=== PATIENT | female | born 1930 | race Caucasian/White ===

== ENCOUNTER → 2016-10-17 | Outpatient (REF) | payer MEDICARE, OTHER ==
[2016-10-17 09:57] LABS: BASOPHILS % (AUTO) 1 % (0-2); EOSINOPHILS # (AUTO) 0.1 10^3uL; EOSINOPHILS % (AUTO) 2 % (0-4); LYMPHOCYTES # (AUTO) 1.3 X10^3; MEAN CORPUSCULAR HGB CONC 33.2 g/dL (31.0-37.0); MEAN CORPUSCULAR VOLUME 97 FL (80-100); MEAN PLATELET VOLUME 10.1 FL (6.0-9.5); MONOCYTES # (AUTO) 0.4 X10^3; MONOCYTES % (AUTO) 9 % (3-11); NEUTROPHILS # (AUTO) 2.3 X10^3; NEUTROPHILS % (AUTO) 56 % (51-67); PLATELET COUNT 220 10^3uL (150-450); WHITE BLOOD COUNT 4.13 10^3uL (4.0-11.0)
[2016-10-17 10:10] LABS: MEAN CORPUSCULAR HEMOGLOBIN 32.3 PG (26.0-34.0)
== END ==
LOC: LAB 09:26
PROVIDERS: ATTEND Internal Medicine
DX: I50.42 Chronic combined systolic (congestive) and diastolic (congestive) heart failure (principal); R73.03 Prediabetes; R73.01 Impaired fasting glucose
CPT/HCPCS: 80048; 83036; 85025

== ENCOUNTER 2017-01-16 10:40 | Outpatient (RCR) | payer MEDICARE, OTHER | END 2017-01-22 19:24 | disposition home or self-care (01) | LOC: LAB 10:40 | PROVIDERS: ATTEND Internal Medicine | DX: Z53.9 Procedure and treatment not carried out, unspecified reason (principal) ==

== ENCOUNTER → 2017-01-16 | Outpatient (REF) | payer MEDICARE, OTHER ==
[~2017-01-16] MED LIST: AC325T PO; AMIO200T2 PO; AMOX500C5 PO; ASP81CT PO; ASPI-860 PO; CEFD300C PO; CYCL5TAB PO; DOCU100T2 PO; FURO40TA4 PO; HYDR-33 PO; HYDR-3702 PO; LSRT50T PO; MAGN400O7 PO; METO25TA2 PO; NTR.4SL SL; POLY17PO2 PO; POTA10CA2 PO; POTA10TA10 PO; SMV20T PO; SPRN25T PO; TRAM-25 PO; TRM50T PO; VALS160T23 PO; WARF2.5T82 PO; WRF5T PO
[2017-01-16 13:27] LABS: BASOPHILS % (AUTO) 0 % (0-2); EOSINOPHILS # (AUTO) 0.2 10^3uL; EOSINOPHILS % (AUTO) 3 % (0-4); LYMPHOCYTES # (AUTO) 1.9 X10^3; MEAN CORPUSCULAR HEMOGLOBIN 30.9 PG (26.0-34.0); MEAN CORPUSCULAR HGB CONC 31.8 g/dL (31.0-37.0); MEAN CORPUSCULAR VOLUME 97 FL (80-100); MEAN PLATELET VOLUME 10.4 FL (6.0-9.5); MONOCYTES # (AUTO) 0.6 X10^3; MONOCYTES % (AUTO) 10 % (3-11); NEUTROPHILS % (AUTO) 53 % (51-67); PLATELET COUNT 249 10^3uL (150-450); WHITE BLOOD COUNT 5.65 10^3uL (4.0-11.0)
[2017-01-16 13:40] LABS: ALBUMIN 3.6 g/dL (3.4-5.0); ANION GAP 11.1 MEQ/L (3-15); CALCULATED IONIZED CALCIUM 4.3 mg/dL (3.8-4.6); TOTAL PROTEIN 6.4 g/dL (6.4-8.5)
[2017-01-16 16:02] LABS: BILIRUBIN,URINE Negative (Negative); COLOR,URINE Yellow; GLUCOSE, URINE (UA) Negative (Negative); LEUKOCYTE ESTERASE ,URINE 2+ (Negative); PH,URINE 6.5 (5.0 - 8.0); UROBILINOGEN,URINE 0.2 mg/dL (0.2-1.0)
[2017-01-16 16:03] LABS: CLARITY,URINE Slightly Cloudy
[2017-01-16 17:20] LABS: RBC,URINE 0-2 /HPF; URINE CENTRIFUGED VOLUME 12 mL
== END ==
LOC: LAB 12:57
PROVIDERS: ATTEND Internal Medicine
DX: Z00.00 Encounter for general adult medical examination without abnormal findings (principal); I10 Essential (primary) hypertension; I48.1 Persistent atrial fibrillation; R82.99 Other abnormal findings in urine
CPT/HCPCS: 80053; 80061; 81003; 81015; 84439; 84443; 85025; 85610; 87077; 87088; 87186